=== PATIENT | male | born 1955 | race Caucasian/White ===

== ENCOUNTER 2017-09-05 22:21 | Emergency (ER) | payer BC ==
[2007-07-10 19:14] VITALS: BP 118/63
[~2017-09-05] VITALS: Ht 175.3 cm; Wt 86.4 kg
[~2017-09-05 22:21] MED LIST: DILANTIN 100MG100 MG PO; EXFORGE 10/320 PO; INDERAL 20MG20 MG; KEPPRA 500MG500 MG PO; LIPITOR 80MG80 MG PO; LIPITOR40 MG PO; LISINOPRIL/HCTZ1 TA1 PO; PROTONIX 40MG T40 MG PO; TEGRETOL 2200 MG/TAB PO; TOPROL XL50 MG PO
[2017-09-05 22:23] VITALS: TEMP 97.8
[2017-09-05] MEDS ORDERED: INDERAL 20MG20 MG PO (22:36)
[2017-09-05] MEDS ORDERED: LIPITOR 80MG80 MG PO (22:36)
[2017-09-05 22:48] LABS: BASO # 0.1 (0.0-0.2); BASO % 0.8 % (0.0-2.0); EOS # 0.1 (0.0-0.7); EOS % 1.2 % (0-4.0); GRAN # 3.3 (1.4-6.5); HEMATOCRIT 44.6 % (42.0-52.0); HEMOGLOBIN 15.1 g/dl (13.5-18.0); LYMPH # 3.5 (1.2-3.4); LYMPH % 46.1 % (20.0-51.0); MEAN CELL VOLUME 91 fl (80.0-100.0); MEAN CORPUSCULAR HEMOGLOBIN 31 pg (27.0-31.0); MEAN CORPUSCULAR HGB CONC 34 g/dl (33.0-37.0); MEAN PLATELET VOLUME 10.8 fl (7.4-10.4); MONO # 0.7 (0.1-0.6); MONO % 8.6 % (1.7-9.3); PLATELET COUNT 187 K/mm3 (130-400); RED BLOOD COUNT 4.93 M/mm3 (4.20-5.60); WHITE BLOOD COUNT 7.6 K/mm3 (4.8-10.8)
[2017-09-05 22:57] LABS: ADJUSTED CALCIUM 8.8 mg/dL (8.4-10.2); ALBUMIN 4.6 gm/dL (3.5-5.0); BILIRUBIN,TOTAL 0.2 mg/dL (0.0-1.0); CALCIUM 9.3 mg/dL (8.4-10.2); CREATININE, serum 0.93 mg/dL (0.66-1.25); POTASSIUM 4.1 mmol/L (3.4-5.0); TOTAL PROTEIN 7.1 gm/dL (6.4-8.2)
[2017-09-05 23:03] LABS: PROTHROMBIN TIME 11.6 SECONDS (9.7-12.8)
[2017-09-05 23:06] LABS: PARTIAL THROMBOPLASTIN TIME 27.8 SECONDS (26.0-37.0)
[2017-09-05 23:09] LABS: TROPONIN-I 0.014 ng/mL (0.000-0.034)
[2017-09-06 02:03] VITALS: BP 120/76; PULSE 56
== END 2017-09-06 02:09 | disposition home or self-care (01) ==
LOC: COL.ER 22:21
PROVIDERS: Emergency Medicine
DX: R07.89 Other chest pain (principal); I10 Essential (primary) hypertension; E78.5 Hyperlipidemia, unspecified

== ENCOUNTER 2018-06-23 09:14 | Emergency (ER) | payer BC ==
[2007-07-10 19:14] VITALS: BP 118/63
[~2018-06-23] VITALS: Ht 177.8 cm; Wt 72.7 kg
[~2018-06-23 09:14] MED LIST changes: +INDERAL 20MG20 MG PO
[2018-06-23 09:15] VITALS: TEMP 97.4
[2018-06-23] MEDS ORDERED: TEGRETOL-XR400 MG PO (09:26)
[2018-06-23 10:08] LABS: BASO % 0.6 % (0.0-2.0); EOS # 0.1 (0.0-0.7); EOS % 0.9 % (0-4.0); GRAN # 5.2 (1.4-6.5); GRAN % 73.9 % (42.2-75.2); HEMATOCRIT 46.3 % (42.0-52.0); HEMOGLOBIN 15.8 g/dl (13.5-18.0); LYMPH # 1.4 (1.2-3.4); LYMPH % 19.8 % (20.0-51.0); MEAN CELL VOLUME 90 fl (80.0-100.0); MEAN CORPUSCULAR HEMOGLOBIN 31 pg (27.0-31.0); MEAN CORPUSCULAR HGB CONC 34 g/dl (33.0-37.0); MEAN PLATELET VOLUME 10.5 fl (7.4-10.4); MONO # 0.3 (0.1-0.6); MONO % 4.4 % (1.7-9.3); PLATELET COUNT 182 K/mm3 (130-400); RED BLOOD COUNT 5.16 M/mm3 (4.20-5.60); REDCELL DISTRIBUTION WIDTH-CV 13.1 % (11.5-14.5)
[2018-06-23 10:14] LABS: ALANINE AMINOTRANSFERASE 32 U/L (21-72); ALBUMIN 4.3 gm/dL (3.5-5.0); ALKALINE PHOSPHATASE 102 U/L (50-136); ANION GAP 8 mmol/L (7-16); AST,SGOT 39 U/L (15-37); BILIRUBIN,TOTAL 0.4 mg/dL (0.0-1.0); BLOOD UREA NITROGEN 20 mg/dL (9-20); CALCIUM 9.1 mg/dL (8.4-10.2); CARBON DIOXIDE 26 mmol/L (22-30); CHLORIDE 103 mmol/L (98-107); CREATININE, serum 0.89 mg/dL (0.66-1.25); GLUCOSE 150 mg/dL (74-106); POTASSIUM 4.5 mmol/L (3.4-5.0); SODIUM 136 mmol/L (137-145); TOTAL PROTEIN 7.4 gm/dL (6.4-8.2)
[2018-06-23 10:17] LABS: CARBAMAZEPINE (TEGRETOL) < 3.0 ug/mL (4.0-12.0)
[2018-06-23] MEDS ORDERED: LIPITOR 10MG10 MG PO (11:17)
[2018-06-23 11:28] LABS: PHENYTOIN (DILANTIN) 11.2 ug/mL (10.0-20.0)
[2018-06-23 11:52] VITALS: BP 152/82; PULSE 76
== END 2018-06-23 11:53 | disposition home or self-care (01) ==
LOC: COL.ER 09:14
PROVIDERS: Family Medicine
DX: G40.909 Epilepsy, unspecified, not intractable, without status epilepticus (principal)

== ENCOUNTER 2019-01-10 11:52 | Emergency (ER) | payer BC ==
[2007-07-10 19:14] VITALS: BP 118/63
[~2019-01-10] VITALS: Ht 172.7 cm; Wt 84.1 kg
[~2019-01-10 11:52] MED LIST changes: +LIPITOR 10MG10 MG PO; +TEGRETOL-XR400 MG PO
[2019-01-10 12:01] VITALS: TEMP 97
[2019-01-10 13:51] LABS: BASO % 0.2 % (0.0-2.0); EOS % 0.2 % (0-4.0); GRAN # 8.9 (1.4-6.5); GRAN % 84.3 % (42.2-75.2); HEMATOCRIT 40.6 % (42.0-52.0); LYMPH # 1.1 (1.2-3.4); LYMPH % 10.1 % (20.0-51.0); MEAN CELL VOLUME 91 fl (80.0-100.0); MEAN CORPUSCULAR HEMOGLOBIN 31 pg (27.0-31.0); MEAN CORPUSCULAR HGB CONC 35 g/dl (33.0-37.0); MEAN PLATELET VOLUME 10.1 fl (7.4-10.4); MONO # 0.5 (0.1-0.6); MONO % 4.9 % (1.7-9.3); PLATELET COUNT 215 K/mm3 (130-400); RED BLOOD COUNT 4.46 M/mm3 (4.20-5.60); REDCELL DISTRIBUTION WIDTH-CV 13.2 % (11.5-14.5)
[2019-01-10 14:06] LABS: ALBUMIN 4.4 gm/dL (3.5-5.0); BILIRUBIN,TOTAL 0.2 mg/dL (0.0-1.0); CALCIUM 9.6 mg/dL (8.4-10.2); CREATININE, serum 1.02 (0.66-1.25); PHENYTOIN (DILANTIN) 8.8 ug/mL (10.0-20.0); TOTAL PROTEIN 7.6 gm/dL (6.4-8.2)
[2019-01-10 14:37] VITALS: BP 115/79; PULSE 64
== END 2019-01-10 14:46 | disposition home or self-care (01) ==
LOC: COL.ER 11:52
PROVIDERS: Emergency Medicine
DX: G40.909 Epilepsy, unspecified, not intractable, without status epilepticus (principal)